=== PATIENT | female | born 2000 | race Caucasian/White ===

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

== ENCOUNTER 2019-11-05 15:24 | Emergency (ER) | payer BC, SELFPAY ==
[2019-11-05 15:25] VITALS: BP 142/98; PULSE 89; RESP 16; TEMP 36.8; O2SAT 100; BMI 21.8
--- NOTE | 2019-11-05 15:46 | ED.DCSUM_ITS ---
- ER Visit Summary Date of Service: 11/05/19 Chief Complaint: Left eye swelling and discomfort History of Present Illness: The patient is a 19 F history of anxiety. Patient intermittently wears glasses but no contacts. Denies any eye trauma. Last 2 days ago she had some discomfort to the left eye. Fell in urgent care yesterday who told her they thought it was cellulitis and put on both Keflex orally and erythromycin eye ointment. She said now the eye is completely swollen shut. She denies any trauma whatsoever. Again she does not wear contact lenses. She denies other complaints. Physical Examination: Young female no acute distress. Vital signs stable afebrile. Multiple myeloma liver swollen. Swollen shut but she is able to open it. There is no obvious stye. There is no significant discharge. Pupils round react light. Extra ocular motions are intact. In the orbital or periorbital cellulitis. There is no proptosis. No facial swelling or rash. No preauricular lymphadenopathy. Lungs clear to auscultation. Heart regular rhythm. Abdomen soft. Moving all 4 extremities. Neurologically awake and alert. Slit-lamp exam of the left eye with fluorescein instilled. The eye itself was unremarkable. There is no corneal abrasion. No foreign body. No ulceration. Extraocular motions were intact and without pain. Both the upper and lower lids are swollen but do not appear to be infected. The lashes are unremarkable. There is no significant discharge of the eye itself. There is no soft conjunctival hemorrhage. There is no signs of a conjunctivitis. Currently I do not see an obvious stye. The lid margins are normal. No lower lid is unremarkable with everting the lid. I am unable to get rikki the upper lid due to swelling. I think patient is could be a local allergic reaction versus possibly a stye but I do not see any stye at this time. Test Results: None Emergency Department Course and Treatment: Fluoroscein and instilled the left eye for slit-lamp examination. Treatment Plan: Ice or cool compresses to the eye. Benadryl for possible allergic reaction. Follow-up with [facility]. Disposition: Discharge Impression: Left eye swelling secondary to allergic reaction This note was generated with [employer] dictation software. It may contain incorrect words, spelling, and punctuation that were not noted in review of the chart prior to signing ED Disposition - Plan for ED Patient: Referrals: Mile Crowe, GUNNAR-C [Primary Care Provider] -
[2019-11-05] MEDS: Fluorescein 1 MG STRIP 1 STRIP LEFT EYE (15:52)
--- NOTE | 2019-11-05 16:43 | ED.DEP ---
ED Disposition - Plan for ED Patient: Disposition: Home or Assisted Living Referrals: Luis Eduardo Melgoza MD [STAFF PHYSICIAN] - 1 Day Additional Instructions: Patient cold compress to left eye decrease swelling. Benadryl 3 times a day increases in allergic reaction. Motrin to decrease swelling. Stop the antibiotic Keflex. You may continue the eye ointment but at this time I do not see any signs of an eye infection. This may be a local allergic reaction causing the swelling it could also be a stye but at this time I do not see any stye. Call and follow-up with the [facility] Dr. Luis Eduardo Melgoza.
== END 2019-11-05 16:58 | disposition home or self-care (01) ==
PROVIDERS: Emergency Provider Emergency Medicine; PCP Nurse Practitioner Family
DX: H02.845 Edema of left lower eyelid (principal); H02.844 Edema of left upper eyelid; T78.40XA Allergy, unspecified, initial encounter
CPT/HCPCS: 99283

== ENCOUNTER 2021-01-07 15:00 | Outpatient (RCR) | payer BC, OTHER, SELFPAY ==
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
--- NOTE | 2020-10-10 17:02 | HP.PTREVAL ---
ANGEL TAYLOR, It has been my pleasure to treat MACI GONZALEZ over the last 41 visits for Tension Pneumothorax. Please see the progress note below for an update on the physical therapy plan of care! Subjective: Pt reports she feels like she continues to improve, but is still not where she needs to be for her IADL's Objective/Function: R shoulder pain is nearly absent. R hip and LE nanette rain around 04/12 this date. R UE MMT grossly 4+/5. R LE grossly 4-/5 and still painful. Pt is able to ambulate greater than 1000' I with no difficulty. Pt is progressing well. Would still benefit from further strengthening in attempt to decrease pain Plan Plan: Cont to focus on strenthening and endurance activity Goals Goal 1:: Decrease R UE and LE pain x 50 % to aid with sleep Goal Time Frame: 4-6 Weeks Goal Progress: Progressing Goal 2:: Pt willl be able to ambulate greater than 1000' with LRD to aid with community ambulation Goal Time Frame: 4-6 Weeks Goal Progress: Goal Met Goal 3:: Increase R UE and LE strength x 1 grade to aid with RTW without limitation Goal Time Frame: 4-6 Weeks Goal 4:: I with HEP Goal Time Frame: 4-6 Weeks Anticipated Interventions Patient/Client Instruction: Educate patient on: Condition, Plan of Care For the Purpose of:: To improve self management Therapeutic Exercise to Include: Strength training, Endurance training, Balance training, Gait and locomotor training, Dynamic Lumbar Stabilization, Scapular Strength/Stabilization For the Purpose of:: To decrease pain, To improve muscle performance and motor function Cryotherapy (ice pack, ice massage): Yes For the Purpose of:: To decrease pain Please do not hesitate to contact me at [phone] by phone or if you have questions or concerns regarding this new plan of care! Sincerely, Andi Turner, PT, ATC
--- NOTE | 2020-11-07 16:54 | HP.PTREVAL ---
ANGEL TAYLOR, It has been my pleasure to treat MACI GONZALEZ over the last 48 visits for Tension Pneumothorax. Please see the progress note below for an update on the physical therapy plan of care! Subjective: Pt reports she has had a lot of sharp pain in R LE and hips at this point Objective/Function: B LE strength is grossly 4-4+/5. Pt is able to ambulate greater than 2700' without difficulty. R LE pain 02/10 this date. Pt is still limited with work requirements and has sleep difficulty secondary to pain Plan Plan: Cont to focus on strenthening and endurance activity Goals Goal 1:: Decrease R UE and LE pain x 50 % to aid with sleep Goal Time Frame: 4-6 Weeks Goal Progress: Progressing Goal 2:: Pt willl be able to ambulate greater than 1000' with LRD to aid with community ambulation Goal Time Frame: 4-6 Weeks Goal Progress: Goal Met Goal 3:: Increase R UE and LE strength x 1 grade to aid with RTW without limitation Goal Time Frame: 4-6 Weeks Goal Progress: Progressing Goal 4:: I with HEP Goal Time Frame: 4-6 Weeks Goal Progress: Progressing Goal 5:: Pt will increase core stability to WNL to aid with her ability to work for 8 hours without limitation/ Goal Time Frame: 4-6 Weeks Goal Progress: New goals Anticipated Interventions Patient/Client Instruction: Educate patient on: Condition, Plan of Care For the Purpose of:: To improve self management Therapeutic Exercise to Include: Strength training, Endurance training, Balance training, Gait and locomotor training, Dynamic Lumbar Stabilization, Scapular Strength/Stabilization For the Purpose of:: To decrease pain, To improve muscle performance and motor function Cryotherapy (ice pack, ice massage): Yes For the Purpose of:: To decrease pain Please do not hesitate to contact me at [phone] by phone or if you have questions or concerns regarding this new plan of care! Sincerely, Andi Turner, PT, ATC
--- NOTE | 2020-12-05 16:55 | HP.PTREVAL ---
ANGEL TAYLOR, It has been my pleasure to treat MACI GONZALEZ over the last 53 visits for Tension Pneumothorax. Please see the progress note below for an update on the physical therapy plan of care! Subjective: I still have pain at night time. It increases to 6/10 and limits my sleep. Objective/Function: R sided pain ranges from 0-6/10. Pt still has sleep difficulty at night secondary to pain. Pt still limited with working normal job for 8 hours due to weakness and pain. Pt is progressing well toward Rx goals. Plan Plan: Cont 2 x's per week for 4 more weeks to focus on strengthening and RTW duties Goals Goal 1:: Decrease R UE and LE pain x 50 % to aid with sleep Goal Time Frame: 4-6 Weeks Goal Progress: Progressing Goal 2:: Pt willl be able to ambulate greater than 1000' with LRD to aid with community ambulation Goal Time Frame: 4-6 Weeks Goal Progress: Goal Met Goal 3:: Increase R UE and LE strength x 1 grade to aid with RTW without limitation Goal Time Frame: 4-6 Weeks Goal Progress: Progressing Goal 4:: I with HEP Goal Time Frame: 4-6 Weeks Goal Progress: Progressing Goal 5:: Pt will increase core stability to WNL to aid with her ability to work for 8 hours without limitation/ Goal Time Frame: 4-6 Weeks Goal Progress: Progressing Anticipated Interventions Patient/Client Instruction: Educate patient on: Condition, Plan of Care For the Purpose of:: To improve self management Therapeutic Exercise to Include: Strength training, Endurance training, Balance training, Gait and locomotor training, Dynamic Lumbar Stabilization, Scapular Strength/Stabilization For the Purpose of:: To decrease pain, To improve muscle performance and motor function Cryotherapy (ice pack, ice massage): Yes For the Purpose of:: To decrease pain Please do not hesitate to contact me at [phone] by phone or if you have questions or concerns regarding this new plan of care! Sincerely, Andi Turner, PT, ATC
--- NOTE | 2021-01-07 16:19 | HP.PTDCSUM ---
It has been my pleasure to treat MACI GONZALEZ referred by ANGEL TAYLOR, with the diagnosis of Tension Pneumothorax for a total of 60 visit(s). Discharge Date: Please see the following information for a summary of their discharge status. Subjective: I am not in any pain today Overall body pain Pain Intensity (Out of 10): 0 % Improvement: 90 Objective/Function: Pt reports she does not have any pain this date. Pt can ambulate greater than 1000 feet without difficulty. R UE and LE strength is 5/5 throughout. I with HEP. Rx goals achieved Goal 1:: Decrease R UE and LE pain x 50 % to aid with sleep Goal Progress: Goal Met Goal 2:: Pt willl be able to ambulate greater than 1000' with LRD to aid with community ambulation Goal Progress: Goal Met Goal 3:: Increase R UE and LE strength x 1 grade to aid with RTW without limitation Goal Progress: Goal Met Goal 4:: I with HEP Goal Progress: Progressing Goal 5:: Pt will increase core stability to WNL to aid with her ability to work for 8 hours without limitation/ Goal Progress: Progressing Plan: Discharge to I gym exercise routine If there are questions or concerns regarding this patient's physical therapy, please feel free to call me at [phone]. Thank you for the referral of this patient. Sincerely, Andi Turner, PT, ATC
== END 2021-01-08 14:19 | disposition home or self-care (01) ==
LOC: PT 15:00
PROVIDERS: PCP Nurse Practitioner Family
DX: J93.0 Spontaneous tension pneumothorax (principal)
CPT/HCPCS: 97110; 97162; 97164

== ENCOUNTER 2021-08-14 18:28 | Emergency (ER) | payer OTHER, SELFPAY ==
[2021-08-14 18:29] VITALS: BP 135/79; PULSE 87; RESP 16; TEMP 36.9; O2SAT 100; BMI 21.7
--- NOTE | 2021-08-14 19:02 | US_ITS ---
STUDY: ULTRASOUND OF THE FEMALE PELVIS - COMPLETE REASON FOR EXAM: Female, 20 years old. IRREG BLEEDING WITH MILD PAIN TECHNIQUE: Endovaginal. Transvaginal US was obtained to better visualized the ovaries. COMPARISON: None. FINDINGS: The uterus is anteverted and is in a midline position. The uterus measures 6.7 x 5.5 cm. Normal uterine cervix. The endometrium measures 2 mm in thickness, and is fluid distended. There is no demonstrated endometrial mass. There is no demonstrated myometrial mass. I.U.D. - The patient does not have an I.U.D. The right ovary is visualized. The right ovary measures 3 x 1.5 cm. There is no right ovarian cyst or ovarian mass. There is no visualized right adnexal mass or complex lesion. There is normal arterial and normal venous vascularity. The left ovary is visualized. The left ovary measures 2.2 x 2.1 cm. There is no left ovarian cyst or ovarian mass. There is no visualized left adnexal mass or complex lesion. There is normal arterial and normal venous vascularity. There is no fluid in the cul-de-sac. US/Transvaginal Non- IMPRESSION: Endometrial fluid which contains echogenic material. This may be related to the patient''s menstrual cycle. Electronically Signed: Andi Perez MD at 20:25 EST , Service support ,
[2021-08-14 19:52] LABS: Absolute Lymphocyte Count 2.35 X10^3/uL (0.83-4.51); Absolute Neutrophil Count 5.4 X10^3/uL (2.0-7.7); Basophil# 0.06 X10^3/uL; Basophil% 0.7 % (0-1); Eosinophil# 0.05 X10^3/uL; Eosinophils% 0.6 % (0-5); Hematocrit 38.8 % (37-47); Hemoglobin 12.7 g/dL (12.0-15.0); Lymphocyte # 2.35 X10^3/ul (0.83-4.51); Lymphocyte % 27.5 % (19-41); Mean Corp Hgb Conc 32.7 g/dL (32-36); Mean Corpuscular Hgb 29.5 pg (27.0-32.0); Mean Platelet Vol. 11.2 fl (6.2-12.0); Monocyte# 0.66 X10^3/uL; Monocyte% 7.7 % (0-10); NRBC Flagged by Analyzer 0 % (0-5); Neutrophil % 63.4 % (47-70); POSITIVE COUNT YES; RBC Distribution Width CV 12.3 % (11.6-14.6); RBC Distribution Width SD 40.5 fl (35.1-43.9); Red Blood Count 4.31 M/mm3 (4.2-5.4); White Blood Count 8.5 K/mm3 (4.4-11.0)
[2021-08-14 20:00] LABS: Differential Indicated SCAN CRITERIA MET
[2021-08-14 20:12] LABS: Anion Gap 7 (5-15); BUN 19 mg/dL (7-18); BUN/Creat Ratio 20.4 RATIO (10-20); Calcium,Total 8.6 mg/dL (8.5-10.1); Chloride 110 mmol/L (98-107); Creatinine, Serum 0.93 mg/dL (0.55-1.02); EST Glomerular Filtration Rate 80 mL/min (>60); Est Glom Filt Rate - Afr Amer 97 mL/min (>60); Estimated Creatinine Clearance 89.58 ml/min; Glucose 85 mg/dL (74-106); Potassium 4.2 mmol/L (3.5-5.1); Sodium Level 142 mmol/L (136-145)
[2021-08-14 20:18] LABS: Platelet Count 130 K/mm3 (150-450)
[2021-08-14 20:19] LABS: Platelet Estimate ADEQUATE (ADEQ)
[2021-08-14 20:24] LABS: Bacteria 0 SEEN /hpf (None Seen); Color, Urine Yellow (Yellow); Glucose, Dipstick Normal (Normal); Ketone-Dipstick Negative (Negative); Leukocyte Esterase-Dipstick Negative /ul (Negative); Mucous, Urine 0 SEEN /hpf (<or=2+); Nitrite-Dipstick Negative (Negative); Occult Blood-Urine 250 /ul (Negative); Protein-Dipstick Negative (Negative); Red Blood Cells-Urine 0 SEEN /hpf (0-5); Squamous Epithelial Cells - UA 0 SEEN /hpf (5-10); Urine Bilirubin Dipstick Negative (Negative); Urine Clarity Clear (Clear); Urine Urobilinogen Normal (Normal); White Blood Cells 0 SEEN /hpf (0-5)
[2021-08-14 20:29] LABS: Internal QC Validated? YES +Cl - CLEAR BKGD
[2021-08-14 20:30] LABS: Pregnancy, Urine Negative Negative
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
== END 2021-08-14 20:53 | disposition home or self-care (01) ==
PROVIDERS: Emergency Provider Emergency Medicine; PCP Nurse Practitioner Family
DX: N92.1 Excessive and frequent menstruation with irregular cycle (principal); F17.210 Nicotine dependence, cigarettes, uncomplicated
CPT/HCPCS: 76830; 80048; 81001; 81025; 85025; 99282; A4216

== ENCOUNTER 2022-12-08 02:28 | Emergency (ER) | payer BC, MEDICAID, SELFPAY ==
[2022-12-08 02:29] VITALS: BP 147/91; PULSE 76; RESP 13; TEMP 36.5; O2SAT 99; BMI 24.4
--- NOTE | 2022-12-08 02:47 | RAD_ITS ---
STUDY: X-RAY CHEST REASON FOR EXAM: Female, 22 years old. Pain TECHNIQUE: PA and lateral views of the chest. COMPARISON: None. FINDINGS: The lungs are clear and expanded. There is no demonstrated pleural abnormality. Normal size heart. Normal mediastinum and chip. Normal visualized pulmonary arteries. Normal visualized aortic arch and descending thoracic aorta. Normal visualized thoracic spine. Normal visualized ribs, clavicles, and shoulders. There is no demonstrated abnormality of the visualized soft tissue structures of the upper abdomen. RAD/Chest PA and Lateral IMPRESSION: Normal x-ray examination of the chest. Electronically Signed: Kelsea Tian MD at 3:20 EST Reading Location ID and State: [facility] / [place] Tel , Service support ,
--- NOTE | 2022-12-08 02:47 | EKG12_ITS ---
Test Reason : CP Blood Pressure : / mmHG Vent. Rate : 070 BPM Atrial Rate : 070 BPM P-R Int : 122 ms QRS Dur : 092 ms QT Int : 402 ms P-R-T Axes : 011 073 022 degrees QTc Int : 434 ms Normal sinus rhythm Low voltage QRS (Limb Leads) Confirmed by RYDER BELL, CAMERON ([id number]), newspaper editor ABENA LOPEZ ([id number]) on 12/09/2022 10:25:29 AM Referred By: DAVID Confirmed By:CAMERON SOLER MD
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
[2022-12-08] MEDS: Ketorolac 15 MG/ML Vial IV (03:23)
[2022-12-08 03:43] VITALS: PULSE 77; RESP 20; O2SAT 96
== END 2022-12-08 03:56 | disposition home or self-care (01) ==
PROVIDERS: Emergency Provider Emergency Medicine; PCP Nurse Practitioner Family; Visit Provider Emergency Medicine
DX: R07.9 Chest pain, unspecified (principal); F17.210 Nicotine dependence, cigarettes, uncomplicated; F12.90 Cannabis use, unspecified, uncomplicated
CPT/HCPCS: 71046; 93005; 96374; 99282; A4216

== ENCOUNTER 2024-11-09 01:16 | Emergency (ER) | payer BC, SELFPAY ==
[2024-11-09 01:17] VITALS: BP 118/81; PULSE 82; RESP 16; TEMP 36.7; O2SAT 100; BMI 24.6
--- NOTE | 2024-11-09 01:50 | RAD_ITS ---
PROCEDURE: HIP, UNI W/ PELVIS 2-3 VIEWS REASON FOR EXAM: Pain. Fall. TECHNIQUE: Two views of the right hip and single frontal view of the pelvis are obtained. COMPARISON: None. FINDINGS: No acute fracture or dislocation is present. Joint spacing is preserved. There are postsurgical changes of the right iliac bone and sacrum with surgical hardware present. Visualized soft tissues are unremarkable. RAD/HIP, UNI W/ Pelvis 2-3 Views IMPRESSION: No acute osseous abnormality. Reading Location: [facility]
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
[2024-11-09] MEDS: Acetaminophen 500 MG Tablet 1000 MG PO (01:56)
--- NOTE | 2024-11-09 02:05 | RAD_ITS ---
PROCEDURE: FOREARM left 2 VIEWS REASON FOR EXAM: Pain. Fall. TECHNIQUE: Two view(s) of left forearm COMPARISON: None. FINDINGS: No acute fracture or dislocation is identified. Joint spacing is preserved. No osseous erosive changes or periosteal reaction is present. Visualized soft tissues are unremarkable. RAD/Forearm 2 Views IMPRESSION: No acute osseous abnormality. Reading Location: [facility]
== END 2024-11-09 02:26 | disposition home or self-care (01) ==
LOC: ED 02:19
PROVIDERS: Emergency Provider Emergency Medicine; PCP Nurse Practitioner Family; Visit Provider Emergency Medicine
DX: S70.01XA Contusion of right hip, initial encounter (principal); S50.12XA Contusion of left forearm, initial encounter; F17.290 Nicotine dependence, other tobacco product, uncomplicated; W00.0XXA Fall on same level due to ice and snow, initial encounter
CPT/HCPCS: 73090; 73502; 99282

== ENCOUNTER 2024-11-09 17:07 | Emergency (ER) | payer BC, SELFPAY ==
[2024-11-09 17:08] VITALS: BP 113/79; PULSE 107; RESP 15; TEMP 36.6; O2SAT 98; BMI 24.1
--- NOTE | 2024-11-09 18:43 | EX.ED.DYSGE1 ---
HPI History of Present Illness Chief Complaint: Nausea/Vomiting/Diarrhea Detail of Chief Complaint: Nausea vomiting diarrhea that started approximately 12 hours ago Informant: patient and spouse/S.O. Onset/Context/Timing Onset: Today Context: Sudden Onset Timing: Continuous (Nausea is continuous) Quality: Bilious emesis and watery stools Location: GI Current Severity: Severe Maximum Severity: Severe Worsened by: Nothing Relieved by: Nothing Associated Symptoms Associated Symptoms: Patient endorses thirst, dry mouth and orthostatic lightheadedness Narrative Narrative: Patient is a 24-year-old female. She is on control pills however she missed a pill per week for the last 4 weeks. Her menses is late. She reports with nausea vomiting diarrhea. She has had 15 episodes of vomiting 10 episodes of diarrhea. The diarrhea is loose and watery. She is not noted any blood or mucus. She denies fever but had chills. She does not feel well. She denies headache, visual, ocular auditory symptoms. She denies cardiac or respiratory symptoms. She does endorse decreased urine output. Denies dysuria, frequency, urgency or hematuria. Prior similar symptoms: No Recent Illness/Hospitalization: No PFSH PFSH Medical History Anxiety Depression Fracture of right hip Seizures Kidney stones Emotional problems History of back problems Asthma hip pelvis surgery Home Medications ?Medication ?Instructions ?Recorded ?Last Taken ?Type levonorgestrel 0.15 mg-ethinyl 1 tab PO QDAY 01/27/24 Unknown History estradiol 0.03 mg tablet (Reyeso (28)) Allergy/AdvReac Type Severity Reaction Status Date / Time gabapentin AdvReac Other Verified 11/09/24 17:08 morphine AdvReac Other Verified 11/09/24 17:08 Family History Other Anxiety Arthritis Asthma Blood clot in vein Depression Social History household members: other details: mother, father and sister housing: house current occupational status: employed current occupation: [employer] Smoking Status: Current every day smoker tobacco type: e-cigarettes alcohol intake: never substance use type: does not use seatbelt use: always do you feel safe at home: Yes ROS ROS ED Constitutional Constitutional ED: Reports chills; Denies fever(s), subjective, sweats or weight loss Eyes Eyes: Denies blurry vision or change in vision ENT ENT ED: Denies rhinorrhea or sore throat Cardiovascular Cardiovascular: Denies chest pain or palpitations Respiratory/Chest Respiratory/Chest: Denies cough, dyspnea or dyspnea on exertion Gastrointestinal Gastrointestinal: Reports abdominal pain, diarrhea, nausea and vomiting; Denies constipation or melena Genitourinary Genitourinary ED: Denies dysuria, hematuria or urinary frequency Musculoskeletal Musculoskeletal: Denies arthralgias, back pain or myalgias Integumentary Denies rash Neurologic Neurologic: Reports weakness; Denies headache(s) Endocrine Endocrinology: Denies cold intolerance or heat intolerance Hematologic/Lymphatic Hematologic/Lymphatic: Reports systems reviewed and no addt'l complaints, except as documented EXAM Physical Exam Const Vital Signs: 11/09/24 17:08 11/09/24 21:01 11/09/24 22:01 Temperature 97.9 F 98.2 F Temperature Source Oral Pulse Rate 107 H 90 98 Respiratory Rate 15 17 15 Blood Pressure 113/79 105/65 110/70 Blood Pressure Mean 90 78 83 Pulse Ox 98 98 99 Oxygen Delivery Method Room Air Room Air Positive well nourished and well developed Constitutional Narrative: Patient appears ill. She is pale. General Appearance ED: well developed and pallor; Negative for cyanotic, diaphoretic or NAD HEENT Reports dry mucous membranes HEENT Narrative: Head is atraumatic no cephalic. Ears normal. Nares patent. Mouth ED: Yes dry mucous membranes Mouth: dry mucous membranes Eyes PERRL and EOMs intact bilaterally General Eye ED: Negative for pale conjunctiva or scleral icterus Neck no lymphadenopathy, supple and no JVD Chest Wall inspection of chest normal and palpation of chest normal Resp normal respiratory effort and clear to auscultation bilaterally Cardio regular rate, regular rhythm, S1 normal heart sound, S2 normal heart sound and no murmurs GI normal to inspection, nondistended, normoactive bowel sounds, non-tender and non-distended; Negative for hepatosplenomegaly Auscultation: hypoactive bowel sounds Palpation: soft Back/Spine no CVA tenderness Extremity normal to inspection Neuro oriented x3 and CN's II-XII intact bilaterally Sensorium / Orientation: alert Psych mental status grossly normal Skin no rashes or lesions noted, no wounds and No skin turgor normal General Skin Exam: pallor; Negative for jaundice MDM MDM MDM Narrative Medical decision making narrative: Patient with nausea vomiting diarrhea clinically dehydrated. BMP was obtained to assess CO2 anion gap and electrolytes and specifically evaluate for hypokalemia. 1 L of normal saline was ordered. Zofran for her nausea and vomiting Imodium for her diarrhea. Prior records indicates that patient has been seen by the [facility] for anxiety. She was seen August 2021 for menorrhagia. She was seen by orthopedics October 24 after ER visit for fracture of right acetabulum. History & Record Review Additional record(s) reviewed:: Prior outpatient record and Prior ED visit Lab Data Attestation: I reviewed the patient's lab results. Lab results narrative: Competence of metabolic panel is remarked for glucose of 137 with normal anion gap and CO2 of 19. Urine is positive for ketones. There is no hypokalemia. Labs: Laboratory Results - last 24 hr 11/09/24 11/09/24 18:55 20:33 WBC 8.5 RBC 4.61 Hgb 13.5 Hct 40.5 MCV 87.9 MCH 29.3 MCHC 33.3 RDW Std Deviation 40.0 RDW Coeff of Tomasz 12.5 Plt Count 256 MPV 11.2 Neut % (Auto) Not Reportable Absolute Neuts (auto) 7.8 H Absolute Lymphs (auto) 0.34 L Total Counted 100 Neutrophils % (Manual) 92 H Lymphocytes % (Manual) 4 L Monocytes % (Manual) 3 Eosinophils % (Manual) 1 Anisocytosis 1+ Sodium 138 Potassium 4.2 Chloride 106 Carbon Dioxide 19.0 L Anion Gap 13 BUN 19 H Creatinine 0.97 Estim Creat Clear Calc 83.00 Est GFR (MDRD) Af Amer 90 Est GFR (MDRD) Non-Af 75 BUN/Creatinine Ratio 19.6 Glucose 137 H Calcium 9.9 Total Bilirubin 1.20 H AST 26 ALT 21 Alkaline Phosphatase 76 Total Protein 8.5 H Albumin 4.4 Globulin 4.1 Albumin/Globulin Ratio 1.1 Serum , Qual NEGATIVE Urine Color Yellow Urine Clarity Clear Urine pH 7.0 Ur Specific [place] 1.005 Urine Protein 30 H Urine Glucose (UA) Normal Urine Ketones 50 H Urine Occult Blood 10 H Urine Nitrite Negative Urine Bilirubin Negative Urine Urobilinogen Normal Ur Leukocyte Esterase 25 H Urine RBC 0-5 SEEN Urine WBC 5-10 SEEN Ur Squamous Epith Cells 0-5 SEEN Urine Bacteria 1+ Urine Mucus 0 SEEN Rhythm Strip Rhythm Strip: Sinus Tach Rate: 110 Ectopy: None Treatment and Re-Evaluation :: Patient was reassessed at 2019. She feels better. She has not had vomiting or diarrhea since arrival. She does not have urge to urinate. Second liter of normal saline was ordered. Patient has passed p.o. challenge. Patient urinated slightly. She still has 700 cc of second bolus to infuse. Will discharge after infusion of second liter. Discharge Plan Triage Chief Complaint: Nausea/Vomiting/Diarrhea Other Complaint: Nausea/Vomiting ED Provider: Bandar Womack Dx/Rx/DC Orders Clinical Impression: Nausea, vomiting and diarrhea, Ketosis, Dehydration, moderate, Normal anion gap metabolic acidosis, Sinus tachycardia seen on senior oracle developer Instructions: Viral Gastroenteritis Prescriptions: No Action levonorgestrel-ethinyl estrad [Reyeso (28)] 0.15-0.03 mg tablet 1 tab PO QDAY Primary Care Provider: Mile Crowe NP Referrals: Mile Crowe NP, [employer] [Primary Care Provider] - 3-5 Days if not improving Print Language: Luxembourger Disposition Disposition: Home, Self Care Discharge Date/Time: 11/09/24 22:03
[2024-11-09] MEDS: 0.9% Normal Saline (1000mL) 1,000 ML 1000 ML IV ×2 (18:58→20:35)
[2024-11-09] MEDS: Ondansetron 4 MG/2 ML Vial IV (18:59)
[2024-11-09] MEDS: Loperamide 2 MG Capsule 4 MG PO (18:59)
[2024-11-09 19:50] LABS: Internal QC Validated? YES +Cl - CLEAR BKGD; Pregnancy, Serum, hCG Quali. NEGATIVE Negative
[2024-11-09 19:56] LABS: ALB/GLOB Ratio 1.1 RATIO (0.9-2.4); AST(SGOT) 26 U/L (15-37); Alanine Aminotransfer ALT/SGPT 21 U/L (13-56); Albumin, Serum 4.4 g/dL (3.2-5.0); Alkaline Phosphatase 76 U/L (45-117); Anion Gap 13 (5-15); BUN 19 mg/dL (7-18); BUN/Creat Ratio 19.6 RATIO (10-20); Calcium,Total 9.9 mg/dL (8.5-10.1); Chloride 106 mmol/L (98-107); Creatinine, Serum 0.97 mg/dL (0.55-1.02); EST Glomerular Filtration Rate 75 mL/min (>60); Est Glom Filt Rate - Afr Amer 90 mL/min (>60); Globulin 4.1 g/dL (2.2-4.2); Glucose 137 mg/dL (74-106); Potassium 4.2 mmol/L (3.5-5.1); Protein, Total 8.5 g/dL (6.4-8.2); Sodium Level 138 mmol/L (136-145)
[2024-11-09 20:25] LABS: Hematocrit 40.5 % (37-47); Hemoglobin 13.5 g/dL (12.0-15.0); Mean Corp Hgb Conc 33.3 g/dL (32-36); Mean Corpuscular Hgb 29.3 pg (27.0-32.0); Mean Corpuscular Volume 87.9 fL (81-99); Mean Platelet Vol. 11.2 fl (6.2-12.0); POSITIVE DIFFERENTIAL YES; POSITIVE MORPHOLOGY YES; Platelet Count 256 K/mm3 (150-450); RBC Distribution Width CV 12.5 % (11.6-14.6); Red Blood Count 4.61 M/mm3 (4.2-5.4); White Blood Count 8.5 K/mm3 (4.4-11.0)
[2024-11-09 20:39] LABS: Mucous, Urine 0 SEEN /hpf (<or=2+)
[2024-11-09 20:45] LABS: Color, Urine Yellow (Yellow); Glucose, Dipstick Normal (Normal); Ketone-Dipstick 50 mg/dl (Negative); Leukocyte Esterase-Dipstick 25 /ul (Negative); Nitrite-Dipstick Negative (Negative); Occult Blood-Urine 10 /ul (Negative); Protein-Dipstick 30 mg/dl (Negative); Specific Gravity, Urine 1.005 (1.002-1.030); Urine Bilirubin Dipstick Negative (Negative); Urine Clarity Clear (Clear); Urine Urobilinogen Normal (Normal)
[2024-11-09 21:01] VITALS: BP 105/65; PULSE 90; RESP 17; O2SAT 98
[2024-11-09 21:27] LABS: Bacteria 1+ /hpf (None Seen); Red Blood Cells-Urine 0-5 SEEN /hpf (0-5); Squamous Epithelial Cells - UA 0-5 SEEN /hpf (5-10); White Blood Cells 5-10 SEEN /hpf (0-5)
[2024-11-09 21:41] LABS: Differential Indicated MANUAL DIFF
[2024-11-09 21:50] LABS: Anisocytosis 1+; Eosinophil 1 % (0-5); Lymphocyte 4 % (19-41); Monocyte 3 % (0-10); Neutrophil-Segmented 92 % (47-70); Total Cells Counted 100 (MANUAL DIFF)
[2024-11-09 21:51] LABS: Absolute Neutrophil Count 7.8 X10^3/uL (2.0-7.7)
[2024-11-09 21:52] LABS: Absolute Lymphocyte Count 0.34 X10^3/uL (0.83-4.51)
[2024-11-09 22:01] VITALS: BP 110/70; PULSE 98; RESP 15; TEMP 36.8; O2SAT 99
== END 2024-11-09 22:03 | disposition home or self-care (01) ==
PROVIDERS: Emergency Provider Emergency Medicine; PCP Nurse Practitioner Family; Visit Provider Emergency Medicine
DX: R11.2 Nausea with vomiting, unspecified (principal); E88.89 Other specified metabolic disorders; E87.20 Acidosis, unspecified; E86.0 Dehydration; R19.7 Diarrhea, unspecified; R00.0 Tachycardia, unspecified; F17.290 Nicotine dependence, other tobacco product, uncomplicated
CPT/HCPCS: 80048; 80053; 81001; 84703; 85025; 96361; 96374; 96376; 99282; A4216; J2405